=== PATIENT | female | born 1980 | race Caucasian/White ===

== ENCOUNTER 2018-11-26 13:14 | Inpatient (IN) | payer MEDICAID ==
[~2018-11-26] VITALS: Ht 160 cm; Wt 92.1 kg
--- NOTE | ~2018-11-26 | EC ---
PATIENT:OSMEL BRADFORD DATE OF SERVICE: 11/26/18 SEX: F MEDICAL RECORD: [id number] DATE OF : [birth year] LOCATION:D.M2 D.210 AGE OF PATIENT: 38 ADMISSION DATE: 11/26/18 REFERRING PHYSICIAN: INTERPRETING PHYSICIAN: LAVONNE JACOBS MD ECHOCARDIOGRAM REPORT ECHO CHARGES 4 ECHO COMPLETE Date: 11/27/18 CLINICAL DIAGNOSIS: HEART MURMUR/METH USE/STERNAL ABCESS, ASSESS FOR VEGATATION ECHOCARDIOGRAPHIC MEASUREMENTS (adult normal given) AC root (d.<3.7cm) 3.0 cm LV Septum d (<1.2 cm> 1.4 cm Valve Excursion 1.6 cm LV Septum (systole) 1.6 cm Left Atria (s.<4.0cm> 3.3 cm LVPW d(<1.2cm) 1.5 cm RV (d.<2.3cm) 3.7 cm LVPW (sytole) 2.0 cm LV diastole(<5.6CM) 4.4 cm MV E-F(>70mm/sec) cm LV systole 2.9 cm LVOT Diameter 1.8 cm MV exc.(>10mm) 1.6 cm Est.ejection fraction (50-75%) % DOPPLER: LVIT cm/sec A 67.0 cm/sec E 116 cm/sec LA cm/sec RVSP 37 mmHg LVOT 142 cm/sec AOP1/2T m/s Asc. Ao 180 cm/sec RVOT 88 cm/sec RA cm/sec PA 128 cm/sec AV Gradient Peak 12.98mmHg AV Mean 6.16 mmHg AV Area 2.1 cm MV Gradient Peak 4.89 mmHg MV Mean 1.56 mmHg MV Area cm COMMENTS: Switchboard Operator Receptionist: 2 JUVENTINO LUCAS Pick Pulling Machine Tender: 1 Dr. Jacobs TAPE# PACS Pericardial Effusion N DATE OF SERVICE: FINDINGS: 1. Left ventricular chamber size is within normal limits. Left ventricular systolic function is normal. Overall ejection fraction estimated 60%. 2. Left atrium, right atrium and right ventricular chamber sizes are within normal limits. 3. Valvular structures have normal structure and motion. 4. Doppler interrogation reveals mild mitral regurgitation, [id number] tricuspid regurgitation, no other valvular insufficiency or stenosis. Pulmonary ECHOCARDIOGRAM REPORT [id number] BRADFORD,OSMEL J systolic pressure is estimated normal at 37 mmHg. 5. No evidence of pericardial effusion or left ventricular thrombus. 6. No evidence of vegetative endocarditis. TRANSINT:[id number] Voice Confirmation ID: [id number] DOCUMENT ID: [id number] LAVONNE JACOBS MD CC: [id number] DICTATION DATE: 11/27/18 1310 CORNER CUTTER MACHINE OPERATOR: 11/27/18 1547 ADM IN [facility] [address] [place] [id number]
[~2018-11-26 13:14] MED LIST: NORCO 10/325 TA1 TA1 PO; OPANA ER10 MG PO
--- NOTE | 2018-11-26 14:00 | NUR ---
LAB AT . BLOOD DRAWN INCLUDING BC'S X2
[2018-11-26 14:15] LABS: HEMATOCRIT 30.8 % (36.0-48.0); HEMOGLOBIN 10.7 g/dL (12-16); MCH 29.7 pg (26.0-34.0); MCHC 34.7 g/dL (31.0-37.0); MCV 85.6 fL (80.0-100.0); MEAN PLATELET VOLUME 10.7 fL (7.4-10.4); PLATELET COUNT 156 10x3/uL (130-400); RDW 14.6 % (11.5-14.5); WBC 29.6 10x3/uL (4.8-10.8)
[2018-11-26 14:30] LABS: ALBUMIN 2.1 g/dL (3.4-5.0); ANION GAP 20.2 mmol/L (8-16); BILIRUBIN - TOTAL 1.2 mg/dL (0.2-1.3); CALCIUM 8.2 mg/dL (8.5-10.1); CARBON DIOXIDE 20.4 mmol/L (21.0-32.0); CREATININE - SERUM 7.5 mg/dL (0.6-1.3); POTASSIUM - SERUM 3.6 mmol/L (3.5-5.1); PROTEIN - SERUM 6.8 g/dL (6.4-8.2)
[2018-11-26 14:43] LABS: ANISOCYTOSIS OCC; BASOPHILS 1 % (0-2); LYMPHOCYTES 9 % (15-50); MONOCYTES 19 % (2-11); NEUTROPHILS 47 % (40-80); PLATELET ESTIMATE NORMAL; TOXIC GRANULATION OCC
[2018-11-26 15:00] VITALS: BP 109/55
--- NOTE | 2018-11-26 15:53 | NUR ---
URINE SPEC OBTAINED, LABELED AT BS AND SENT TO LAB
[2018-11-26 16:10] LABS: APPEARANCE CLOUDY (CLEAR); BILIRUBIN NEGATIVE (NEGATIVE); COLOR YELLOW (YELLOW); GLUCOSE NEGATIVE (NEGATIVE); KETONE NEGATIVE (NEGATIVE); NITRITE NEGATIVE (NEGATIVE); PROTEIN NEGATIVE (NEGATIVE); SPECIFIC GRAVITY 1.005 (1.005-1.020); UROBILINOGEN NORMAL (NORMAL)
[2018-11-26 16:12] LABS: EPITHELIAL CELLS 0-5 /hpf (0-5); RED CELLS - URINE 0-5 /hpf (0-5)
[2018-11-26 16:13] LABS: BACTERIA MODERATE /hpf (NONE SEEN)
[2018-11-26 16:14] LABS: UDS - AMPHET POSITIVE QUAL (NEGATIVE); UDS - BARB NEGATIVE QUAL (NEGATIVE); UDS - BENZO NEGATIVE QUAL (NEGATIVE); UDS - COCAINE NEGATIVE QUAL (NEGATIVE); UDS - OPIATE POSITIVE QUAL (NEGATIVE); UDS - PCP NEGATIVE QUAL (NEGATIVE); UDS - THC NEGATIVE QUAL (NEGATIVE)
[2018-11-26 17:14] VITALS: BP 103/61
--- NOTE | 2018-11-26 17:15 | NUR ---
PT SITTING UP IN BED FIDGETY, REQUESTING FOOD AND WATER. SPOKE WITH DR CASTILLO AND LEO TO EAT. SANDWICH AND WATER GIVEN.
[2018-11-26 17:58] VITALS: BP 107/56
[2018-11-26 18:12] VITALS: BP 104/53
--- NOTE | 2018-11-26 18:28 | MORECARE ---
CASE MANAGEMENT DISCHARGE SUMMARY PATIENT: OSMEL BRADFORD UNIT: [id number] ADM DATE: 11/26/18 AGE: 38 : [birth year] SEX: F ROOM/BED: D.2102 AUTHOR: STONEY COPELAND PHYSICIAN: REFERRING PHYSICIAN: ELMA CLAIRE MD DATE OF SERVICE: 11/26/18 Discharge Plan Patient Name: OSMEL BRADFORD [facility] [facility] 1980 Planned Disposition: Home Anticipated Discharge Date: Discharge Date: Expected LOS: Initial Reviewer: [email or web address] Initial Review Date: 11/26/2018 Generated: 11/26/18 7:28 pm DCPIA - Discharge Planning Initial Assessment Updated by [email or web address]: Tiffanie Neil on 11/26/18 6:27 pm * Is the patient Alert and Oriented? Yes * How many steps to enter\exit or inside your home? * PCP Does not have one * Pharmacy Does not know * Preadmission Environment Home Alone * ADLs Independent * Equipment None * List name and contact numbers for known caregivers / representatives who currently or will assist patient after discharge: Kerline Meza - sister - [phone] Bernarda Milianford - mother - [phone] * Verbal permission to speak to the caregivers and representatives has been obtained from the patient. Yes * Community resources currently utilized None * Additional services required to return to the preadmission environment? No * Can the patient safely return to the preadmission environment? Yes * Has this patient been hospitalized within the prior 30 days at any hospital? No Patient Name: OSMEL BRADFORD Page 88058 at 1828 All edits/amendments must be made on the electronic document DICTATION DATE: 11/26/181827 CODING AUDITOR: RAYMUNDO 11/26/181827 RPT#: [id number] DC DATE: STATUS: ADM IN [facility] [address] [place] [address] END OF REPORT
--- NOTE | 2018-11-26 18:32 | NUR ---
PT ADMITTED TO ROOM #2102 CONDITION STABLE. NS AND ZOSYN INFUSING UPON ADMISSION TO FLOOR
--- NOTE | 2018-11-26 18:36 | MORECARE ---
CASE MANAGEMENT DISCHARGE SUMMARY PATIENT: OSMEL BRADFORD UNIT: [id number] ADM DATE: 11/26/18 AGE: 38 : [birth year] SEX: F ROOM/BED: D.2649 AUTHOR: DINORAH,DOC PHYSICIAN: REFERRING PHYSICIAN: ELMA CLAIRE MD DATE OF SERVICE: 11/26/18 Discharge Plan Patient Name: OSMEL BRADFORD Facility: [facility]:[place] : 1980 Planned Disposition: Home Anticipated Discharge Date: Discharge Date: Expected LOS: Initial Reviewer: [email or web address] Initial Review Date: 11/26/2018 Generated: 11/26/18 7:35 pm DCP- Discharge Planning Updated by [email or web address]: Tiffanie Neil on 11/26/18 5:[address] Patient Name: OSMEL BRADFORD Admission Status: ER Accout number: [id number] Admission Date: 11-26-2018 : 1980 Admission Diagnosis: Attending: ALETHEA, Current LOS: 1 Anticipated DC Date: Planned Disposition: Home Primary Insurance: MED[place]ID [place] Discharge Planning Comments: CM met with patient to complete initial dc planning assessment. CM educated patient on the CM role and verbal consent given by patient to complete assessment. Patient very restless, figiting, and unable to sit still to have conversation. CM had to repeat questions multiple times for her to remember what I had asked. Patient positive for amphetamines and opiates and appears to be impaired during interview. CM verified patient's address, phone number, and emergency contact phone numbers. Patient lives at home alone. At discharge patient plans to return home and feels this is a safe discharge. CM discussed availability of home health, rehab services, and medical equipment. Patient denied known discharge needs at this time. Patient reports her dad will transport him/her home at time of discharge. Patient may benefit from drug rehab information when she is clear/sober and able to listen to available programs. CM will continue to follow and will assist as needed with dc plans/needs. [place]: Tiffanie Neil RN, [facility] DCPIA - Discharge Planning Initial Assessment Updated by [email or web address]: Tiffanie Neil on 11/26/18 6:27 pm * Is the patient Alert and Oriented? Yes * How many steps to enter\exit or inside your home? * PCP Does not have one * Pharmacy Does not know * Preadmission Environment Home Alone * ADLs Independent * Equipment None * List name and contact numbers for known caregivers / representatives who currently or will assist patient after discharge: Kerline Meza - sister - [phone] Bernarda Cameron - mother - [phone] * Verbal permission to speak to the caregivers and representatives has been obtained from the patient. Yes * Community resources currently utilized None * Additional services required to return to the preadmission environment? No * Can the patient safely return to the preadmission environment? Yes * Has this patient been hospitalized within the prior 30 days at any hospital? No Last DP export: 11/26/18 5:28 p Patient Name: OSMEL BRADFORD Page 00488 at 1836 All edits/amendments must be made on the electronic document DICTATION DATE: 11/26/181834 PLAYERS CLUB REPRESENTATIVE: RAYMUNDO 11/26/181834 RPT#: [id number] DC DATE: STATUS: ADM IN [facility] [address] [place] [address] END OF REPORT
[2018-11-26 19:20] LABS: % SATURATION 64 % (15-55); IRON 105 ug/dl (35-150); TOTAL IRON BIND CAPACITY 164 ug/dl (260-445); UNSAT IRON BIND CAPACITY 59 ug/dl (150-375)
[2018-11-26 19:58] LABS: HEMATOCRIT 27.7 % (36.0-48.0); HEMOGLOBIN 9.7 g/dL (12-16); MCH 29.7 pg (26.0-34.0); MCV 84.7 fL (80.0-100.0); MEAN PLATELET VOLUME 10.6 fL (7.4-10.4); PLATELET COUNT 120 10x3/uL (130-400); RBC 3.27 10x6/uL (4.00-5.40); RDW 14.6 % (11.5-14.5); WBC 30.7 10x3/uL (4.8-10.8)
[2018-11-26 20:22] LABS: LYMPHOCYTES 10 % (15-50); MONOCYTES 4 % (2-11); NEUTROPHILS 75 % (40-80); PLATELET ESTIMATE NORMAL
[2018-11-26 21:04] VITALS: BP 98/52
[2018-11-26 22:15] LABS: ALBUMIN 1.9 g/dL (3.4-5.0); ANION GAP 19.3 mmol/L (8-16); BILIRUBIN - TOTAL 1.32 mg/dL (0.2-1.3); CALCIUM 8.1 mg/dL (8.5-10.1); CARBON DIOXIDE 19.2 mmol/L (21.0-32.0); CREATININE - SERUM 7.3 mg/dL (0.6-1.3); POTASSIUM - SERUM 3.5 mmol/L (3.5-5.1); PROTEIN - SERUM 7.1 g/dL (6.4-8.2)
[2018-11-26 22:51] VITALS: BP 98/52; BMI 36.0
[2018-11-26 23:01] LABS: ERYTHROCYTE SEDIMENTATION RATE 114 mm/hr (0-20)
[2018-11-27] MEDS ORDERED: ACETAMINOPHEN500 M1 PO (00:05)
[2018-11-27 01:29] VITALS: BP 126/57
[2018-11-27 04:07] LABS: HEMATOCRIT 28.7 % (36.0-48.0); HEMOGLOBIN 10.2 g/dL (12-16); MCH 30.3 pg (26.0-34.0); MCHC 35.5 g/dL (31.0-37.0); MCV 85.2 fL (80.0-100.0); MEAN PLATELET VOLUME 10.9 fL (7.4-10.4); PLATELET COUNT 115 10x3/uL (130-400); RBC 3.37 10x6/uL (4.00-5.40); RDW 14.8 % (11.5-14.5); WBC 33.3 10x3/uL (4.8-10.8)
[2018-11-27 04:23] LABS: ALBUMIN 1.8 g/dL (3.4-5.0); ANION GAP 22.1 mmol/L (8-16); BILIRUBIN - TOTAL 1.38 mg/dL (0.2-1.3); CALCIUM 7.9 mg/dL (8.5-10.1); CARBON DIOXIDE 16.9 mmol/L (21.0-32.0); CREATININE - SERUM 7.1 mg/dL (0.6-1.3); MAGNESIUM - SERUM 2.8 mg/dL (1.8-2.4); PHOSPHOROUS 4.2 mg/dL (2.5-4.9); PROTEIN - SERUM 6.9 g/dL (6.4-8.2); VANCOMYCIN - RANDOM 0.4 ug/mL (10.0-20.0)
[2018-11-27 04:32] LABS: EOSINOPHILS 1 % (0-7); LYMPHOCYTES 9 % (15-50); MONOCYTES 3 % (2-11); NEUTROPHILS 74 % (40-80); PLATELET ESTIMATE DECREASED; PLATELET MORPHOLOGY PLT CLUMPS PRESENT
--- NOTE | 2018-11-27 04:46 | NUR ---
ASSESSED AT THE BEGINNING OF THE SHIFT. PT IS LETHARGIC AND EASILY FALLS ASLEEP. HER DAD WAS WITH HER FOR A WHILE AND THEN HE WENT HOME. SHE HAS REMAINED LETHARGIC THROUGH OUT THE NIGHT AND SLEPT MOST OF THE NIGHT. WHEN ASKED FOR A URINE SPECIMEN SHE STATED SHE DID NOT VOID OFTEN AND HAS NOT VOIDED YET. AT ONE POINT SHE REQUESTED PAIN MEDS BUT DUE TO THE FACT THAT SHE CANNOT STAY AWAKE I DID NOT CALL THE MD FOR PAIN. SHE REQUESTED FOOD AND WHEN IT WAS GIVEN SHE COULD NOT STAY AWAKE LONG ENOUGH TO EAT IT. SHE WAS GIVEN AN ICE BAG FOR HER ABCESS TO THE STERNUM. AT THIS TIME SHE REMAINS ASLEEP.
[2018-11-27 06:22] VITALS: BP 90/60
--- NOTE | 2018-11-27 07:05 | NUR ---
SHE IS LETHARGIC BUT ANSWERS TO NAME WHEN CALLED. RESP EVEN WITHOUT LABOR. IV SITE IS CLEAR. SHE IS CONFUSED TO WHERE SHE IS REORIENTATION DONE. ICE PACK TO TOP OF CHEST DUE TO ABCESS THAT IS NOT OPEN BUT RED AND WELL DEFINED IN SIZE. IT IS ABOUT 10CM AROUND HER BREASTBONE BETWEEN HER BREAST. CL IN REACH.
[2018-11-27 08:13] VITALS: BP 111/57
--- NOTE | 2018-11-27 09:00 | NUR ---
HER DAD IS HERE FOR VISIT AT THIS TIME. SHE IS EATING SOME BREAKFAST AND IS MORE ALERT BUT CONTINUES TO BE DROWSY. SHE DOES AROUSE TO VERBAL STIMULI AND SOMETIMES MUMBLES BUT WHEN ASKED TO REPEAT SELF SHE DOES AND IT IS APPROIATE TO QUESTIONS.
--- NOTE | 2018-11-27 10:50 | NUR ---
HAD 450CC OF DARK COLORED URINE OUT AT THIS TIME. SAMPLE COLLECTED AND TOOK DOWN TO LAB AT THIS TIME.
[2018-11-27 11:23] LABS: PROTEIN - URINE 155.8 mg/dL (0.0-11.9)
[2018-11-27 11:24] LABS: APPEARANCE CLOUDY (CLEAR); BILIRUBIN NEGATIVE (NEGATIVE); COLOR DK YELLOW (YELLOW); CREATININE - URINE 206.4 mg/dL (30-125); GLUCOSE 100 mg/dL (NEGATIVE); KETONE NEGATIVE (NEGATIVE); NITRITE NEGATIVE (NEGATIVE); PRO/CRE RATIO URINE 0.8 mg/g; PROTEIN 1+ mg/dL (NEGATIVE)
[2018-11-27 11:25] LABS: AMORPHOUS SEDIMENT <1+ /lpf (NONE SEEN); BACTERIA MODERATE /hpf (NONE SEEN); EPITHELIAL CELLS 0-5 /hpf (0-5); RED CELLS - URINE 0-5 /hpf (0-5)
[2018-11-27 11:45] VITALS: BP 93/57
[2018-11-27 12:41] VITALS: Ht 160 cm; Wt 92.1 kg
--- NOTE | 2018-11-27 13:10 | NUR ---
RESTING WITH EASE NO C/O VOICED CL IN REACH ORAL FLUIDS ENCOURAGED. SHE DOES HAVE DRY CRACKED LIPS. IV SITE CLEAR.
--- NOTE | 2018-11-27 13:44 | MORECARE ---
CASE MANAGEMENT DISCHARGE SUMMARY PATIENT: OSMEL BRADFORD UNIT: [id number] ADM DATE: 11/26/18 AGE: 38 : [birth year] SEX: F ROOM/BED: D.2102 AUTHOR: DINORAH,STONEY PHYSICIAN: REFERRING PHYSICIAN: ELMA CLAIRE MD DATE OF SERVICE: 11/27/18 Discharge Plan Patient Name: OSMEL BRADFORD Facility: [facility]:[place] : 1980 Planned Disposition: Home Anticipated Discharge Date: Discharge Date: Expected LOS: Initial Reviewer: [email or web address] Initial Review Date: 11/26/2018 Generated: 11/27/18 2:43 pm Comments DCP- Discharge Planning Updated by [email or web address]: Elin Huff on 11/27/18 12:[address] RECEIVED A CALL FROM SHANDA GARCIA APN WITH DR CLAIRE, SHE STATED THAT DR HARRISON WANTED THE PATIENT TRANSFERED TO [facility] TO A PLASTICS DOCTOR FOR DX: ACUTE FRACTURE OF THE STERNUM WITH RETROSTERNAL ABSCESS AND DR CLAIRE WOULD DO THE DOC TO DOC. @ 1111 RECEIVED ADMINISTRATIVE APPROVAL FROM BRIONNA MUELLERRECYCLING OPERATIONS MANAGER FOR TRANSFER. @ 8027 TALKED WITH PATIENT AND OBTAINED CONSENT FOR TRANSFER. @0481 CALL PLACED TO THE [facility] PHYSICIAN CALL CENTER ([phone]) AND SPOKE WITH DARBY. ALL INFORMATON GIVEN. SHE IS UNSURE OF WHO THE MD TRUCK MECHANIC APPRENTICE IS, BUT WILL FIND OUT AND SAID SOMEONE WILL CALL THE DOCTOR BACK. I HAVE RELAYED THIS INFORMATION TO DR CLAIRE. WILL WAIT FOR RETURN CALL. DCP- Discharge Planning Updated by [email or web address]: Tiffanie Neil on 11/26/18 5:[address] Patient Name: OSMEL BRADFORD Admission Status: ER Accout number: [id number] Admission Date: 11-26-2018 : 1980 Admission Diagnosis: Attending: ALETHEA, Current LOS: 1 Anticipated DC Date: Planned Disposition: Home Primary Insurance: MEDICAID [place] Discharge Planning Comments: CM met with patient to complete initial dc planning assessment. CM educated patient on the CM role and verbal consent given by patient to complete assessment. Patient very restless, figiting, and unable to sit still to have conversation. CM had to repeat questions multiple times for her to remember what I had asked. Patient positive for amphetamines and opiates and appears to be impaired during interview. CM verified patient's address, phone number, and emergency contact phone numbers. Patient lives at home alone. At discharge patient plans to return home and feels this is a safe discharge. CM discussed availability of home health, rehab services, and medical equipment. Patient denied known discharge needs at this time. Patient reports her dad will transport him/her home at time of discharge. Patient may benefit from drug rehab information when she is clear/sober and able to listen to available programs. CM will continue to follow and will assist as needed with dc plans/needs. Employee Health Rn: Tiffanie Neil RN, [facility] DCPIA - Discharge Planning Initial Assessment Updated by [email or web address]: Tiffanie Neil on 11/26/18 6:27 pm * Is the patient Alert and Oriented? Yes * How many steps to enter\exit or inside your home? * PCP Does not have one * Pharmacy Does not know * Preadmission Environment Home Alone * ADLs Independent * Equipment None * List name and contact numbers for known caregivers / representatives who currently or will assist patient after discharge: Kerline Meza - sister - [phone] Bernarda Cameron - mother - [phone] * Verbal permission to speak to the caregivers and representatives has been obtained from the patient. Yes * Community resources currently utilized None * Additional services required to return to the preadmission environment? No * Can the patient safely return to the preadmission environment? Yes * Has this patient been hospitalized within the prior 30 days at any hospital? No Last DP export: 11/26/18 5:35 p Patient Name: OSMEL BRADFORD Page 13716 at 1344 All edits/amendments must be made on the electronic document DICTATION DATE: 11/27/18 134 CREDIT RISK ASSOCIATE: RAYMUNDO 11/27/18 1343 RPT#: [id number] DC DATE: STATUS: ADM IN [facility] [address] [place] [address] END OF REPORT
--- NOTE | 2018-11-27 16:10 | NUR ---
C/O PAIN IN CHEST AREA. ABCESS AREA REMAINS RED AND SWOLLEN WITH NO OPEN AREA NOTED.
--- NOTE | 2018-11-27 17:30 | NUR ---
SISTER AND HER FAMILY HERE FOR VISIT. SHE IS MORE ALERT WITH NO C/O PAIN.
--- NOTE | 2018-11-27 18:15 | NUR ---
SHE URINATED AND URINE IS STARTING TO CLEAR UP SOME BUT REMAINS TRICIA IN COLOR. DENIES ANY NEEDS AT THIS TIME. ICE PACK TO CHEST.
--- NOTE | 2018-11-27 19:28 | NUR ---
REPORT RECEIVED FROM DAY SHIFT AND PATIENT CARE ASSUMED. PATIENT LAYING IN BED AWAKE, ALERT AND ORIENTED X 4. PATIENT DENIES ANY NEEDS OR PAIN. WILL CONTINUE WITH PLAN OF CARE. SR UP X 2 BED IN LOW POSTION AND CALL LIGHT IN REACH.
[2018-11-27 20:00] VITALS: BP 111/67
--- NOTE | 2018-11-27 22:44 | NUR ---
PATIENT RESTING COMFORTABLY IN BED WITH EYES CLOSED AND BREATHING EVENLY. TRANSFER AGREEMENT AND ALL REQUIRED PAPERWORK HAS BEEN COMPLETED AND SIGNED BY JON FISHER RN AND PHYSICIAN. [facility]. WILL CONTINUE TO MONITOR PATIENT. SR UP X 2 BED IN LOW POSITION AND CALL LIGHT IN REACH.
--- NOTE | 2018-11-28 00:10 | NUR ---
RESUMING PATIENT CARE. PATIENT IS RESTING COMFORTABLY IN BED. RESPIRATIONS ARE EVEN AND UNLABORED. NO S/S OF DISTRESS. NO C/O PAIN. CALL LIGHT WITHIN REACH. WILL CPOC. PATIENT AWAITING TRANSPORT TO [facility].
--- NOTE | 2018-11-28 02:05 | NUR ---
PATIENT LEAVING VIA AMBULANCE ([facility]) TO [facility].
[2018-11-28 17:08] LABS: FOLATE (FOLIC ACID) - SERUM 12.2 ng/mL (>3.0)
--- NOTE | 2018-11-30 08:04 | MORECARE ---
CASE MANAGEMENT DISCHARGE SUMMARY PATIENT: OSMEL BRADFORD UNIT: [id number] ADM DATE: 11/26/18 AGE: 38 : 76 SEX: F ROOM/BED: D.2102 AUTHOR: STONEY COPELAND PHYSICIAN: REFERRING PHYSICIAN: ELMA CLAIRE MD DATE OF SERVICE: 11/30/18 Discharge Plan Patient Name: OSMEL BRADFORD Facility: [facility]:[place] : 1980 Planned Disposition: Acute Care Hospital Anticipated Discharge Date: 11/28/18 Discharge Date: 11/28/2018 Expected LOS: 2 Initial Reviewer: [email or web address] Initial Review Date: 11/26/2018 Generated: 11/30/18 9:04 am Comments DCP- Discharge Planning Updated by [email or web address]: Elin Huff on 11/27/18 12:[address] RECEIVED A CALL FROM SHANDA GARCIA APN WITH DR CLAIRE, SHE STATED THAT DR HARRISON WANTED THE PATIENT TRANSFERED TO [facility] TO A PLASTICS DOCTOR FOR DX: ACUTE FRACTURE OF THE STERNUM WITH RETROSTERNAL ABSCESS AND DR CLAIRE WOULD DO THE DOC TO DOC. @ 1111 RECEIVED ADMINISTRATIVE APPROVAL FROM BRIONNA MUELLERSENIOR APPLICATION SOFTWARE ENGINEER FOR TRANSFER. @ 1117 TALKED WITH PATIENT AND OBTAINED CONSENT FOR TRANSFER. @9578 CALL PLACED TO THE [facility] PHYSICIAN CALL CENTER ([phone]) AND SPOKE WITH DARBY. ALL INFORMATON GIVEN. SHE IS UNSURE OF WHO THE MD SALVAGE SUPERVISOR IS, BUT WILL FIND OUT AND SAID SOMEONE WILL CALL THE DOCTOR BACK. I HAVE RELAYED THIS INFORMATION TO DR CLAIRE. WILL WAIT FOR RETURN CALL. DCP- Discharge Planning Updated by [email or web address]: Tiffanie Neil on 11/26/18 5:[address] Patient Name: OSMEL BRADFORD Admission Status: ER Accout number: [id number] Admission Date: 11-26-2018 : 1980 Admission Diagnosis: Attending: ALETHEA, Current LOS: 1 Anticipated DC Date: Planned Disposition: Home Primary Insurance: MEDICAID [place] Discharge Planning Comments: CM met with patient to complete initial dc planning assessment. CM educated patient on the CM role and verbal consent given by patient to complete assessment. Patient very restless, figiting, and unable to sit still to have conversation. CM had to repeat questions multiple times for her to remember what I had asked. Patient positive for amphetamines and opiates and appears to be impaired during interview. CM verified patient's address, phone number, and emergency contact phone numbers. Patient lives at home alone. At discharge patient plans to return home and feels this is a safe discharge. CM discussed availability of home health, rehab services, and medical equipment. Patient denied known discharge needs at this time. Patient reports her dad will transport him/her home at time of discharge. Patient may benefit from drug rehab information when she is clear/sober and able to listen to available programs. CM will continue to follow and will assist as needed with dc plans/needs. Magnetic Prospecting Supervisor: Tiffanie Neil RN, [facility] DCPIA - Discharge Planning Initial Assessment Updated by [email or web address]: Tiffanie Neil on 11/26/18 6:27 pm * Is the patient Alert and Oriented? Yes * How many steps to enter\exit or inside your home? * PCP Does not have one * Pharmacy Does not know * Preadmission Environment Home Alone * ADLs Independent * Equipment None * List name and contact numbers for known caregivers / representatives who currently or will assist patient after discharge: Kerline Meza - sister - [phone] Bernarda Cameron - mother - [phone] * Verbal permission to speak to the caregivers and representatives has been obtained from the patient. Yes * Community resources currently utilized None * Additional services required to return to the preadmission environment? No * Can the patient safely return to the preadmission environment? Yes * Has this patient been hospitalized within the prior 30 days at any hospital? No Last DP export: 11/27/18 12:43 p Patient Name: OSMEL BRADFORD Page 37670 at 0804 All edits/amendments must be made on the electronic document DICTATION DATE: 11/30/18803 ICICLE MACHINE OPERATOR: [email or web address] 11/30/18803 RPT#: [id number] DC DATE:11/28/18 STATUS: DIS IN [facility] [address] [place] [address] END OF REPORT
[2018-11-30 20:06] LABS: SPE - A/G RATIO 0.5 (0.7-1.7); SPE - ALPHA-1 GLOBULIN 0.5 g/dL (0.0-0.4); SPE - ALPHA-2 GLOBULIN 0.6 g/dL (0.4-1.0); SPE - GAMMA GLOBULIN 2.1 g/dL (0.4-1.8); SPE - M-SPIKE 0.2 g/dL (Not Observed); SPE - TOTAL PROTEIN 6.2 g/dL (6.0-8.5)
== END 2018-11-28 02:09 | disposition short-term general hospital (02) | DRG 871 ==
LOC: D.ER 13:14 → D.M2 17:44
PROVIDERS: Family Medicine; Internal Medicine Nephrology; ADMIT Family Medicine; ATTEND Family Medicine
DX: A41.9 Sepsis, unspecified organism (principal); J85.3 Abscess of mediastinum; N17.9 Acute kidney failure, unspecified; S22.20XA Unspecified fracture of sternum, initial encounter for closed fracture; E87.1 Hypo-osmolality and hyponatremia; X58.XXXA Exposure to other specified factors, initial encounter; D64.9 Anemia, unspecified; F15.10 Other stimulant abuse, uncomplicated; F11.10 Opioid abuse, uncomplicated; K75.9 Inflammatory liver disease, unspecified; F32.9 Major depressive disorder, single episode, unspecified; F41.9 Anxiety disorder, unspecified; T43.621A Poisoning by amphetamines, accidental (unintentional), initial encounter; T40.4X1A Poisoning by other synthetic narcotics, accidental (unintentional), initial encounter; E86.0 Dehydration; Z87.891 Personal history of nicotine dependence; G93.9 Disorder of brain, unspecified; I08.1 Rheumatic disorders of both mitral and tricuspid valves